=== PATIENT | female | born 1975 | race Caucasian/White ===

== ENCOUNTER 2019-09-02 10:43 | Day surgery (SDC) | payer OTHER ==
[~2019-09-02 10:43] MED LIST: PERCOCET 5-3251 EACH PO; TRAZODONE HCL50 MG PO
== END 2019-09-02 17:30 | disposition home or self-care (01) ==
LOC: CIR.AMB 10:43
DX: M19.211 Secondary osteoarthritis, right shoulder (principal); G56.21 Lesion of ulnar nerve, right upper limb; M77.01 Medial epicondylitis, right elbow; M24.021 Loose body in right elbow